=== PATIENT | male | born 1995 | race Caucasian/White ===

== ENCOUNTER 2016-06-27 20:01 | Emergency (ER) | payer BC, OTHER ==
[2016-06-27 21:02] LABS: % IMMATURE GRANULYOCYTES 0.3 % (0.0-1.1); ABSOLUTE IMMATURE GRANULOCYTES 0.04 10^3/uL (0.00-0.10); ADD DIFF? NO; ADD MORPH? NO; ADD SCAN? NO; ATYPICAL LYMPHOCYTE FLAG 0 (0-99); FRAGMENT RBC FLAG 0 (0-99); HEMATOCRIT 46.7 % (40.0-51.0); HEMOGLOBIN 17.4 g/dL (13.7-17.5); LEFT SHIFT FLG 0 (0-99); LIPEMIA HEMOLYSIS FLAG 90 (0-99); MEAN CELL HEMOGLOBIN CONCENTR. 37.3 g/dL (32.4-36.7); MEAN CELL VOLUME 91.2 fL (81.5-99.8); MEAN PLATELET VOLUME 9.7 fL (8.7-11.7); PLATELET CLUMPS FLAG 20 (0-99); PLATELET COUNT 200 10^3/uL (150-400); RED BLOOD CELL COUNT 5.12 10^6/uL (4.40-6.38); RED CELL DISTRIBUTION WIDTH 12.2 % (11.5-15.2)
--- NOTE | 2016-06-27 21:11 | EDPHY ---
H & P Stated Complaint: Fever, N/V Source: Patient Exam Limitations: No limitations - Personal History Current Tetanus/Diphtheria Vaccine: Yes Current Tetanus Diphtheria and Acellular Pertussis (TDAP): Yes - Medical/Surgical History Hx Asthma: No Hx Chronic Respiratory Disease: No Hx Diabetes: No Hx Cardiac Disease: No Hx Renal Disease: No Hx Cirrhosis: No Hx Alcoholism: No Hx HIV/AIDS: No Hx Splenectomy or Spleen Trauma: No Other PMH: GERD - Social History Smoking Status: Never smoked HPI/ROS: CHIEF COMPLAINT: fever, nausea HISTORY OF PRESENT ILLNESS: Nausea, vomiting, fever this started soon after eating this morning. Unable to keep anything down including liquids. Fevers been very well. He has no headache with this. No neck pain or stiffness. He does have body aches. He has no cough, congestion, chest pain or shortness of breath. No abdominal pain but mild discomfort. No flank pain. No urinary complaints. No constipation or diarrhea. No bloody stools or emesis. No other associated complaints or modifying factors. did have left ankle surgery 5 weeks ago but has no complaints regarding this and has had normal follow-up care. REVIEW OF SYSTEMS: Ten systems reviewed and are negative unless otherwise noted in the HPI EXAMINATION General Appearance: Alert, no distress Head: normocephalic, atraumatic Eyes: Pupils equal and round, no conjunctival pallor or injection . EOMs intact. ENT, Mouth: Mucous membranes moist . Uvula midline. No lesions, erythema or edema. Neck: Normal inspection, supple, non-tender Patient painless range of motion all planes. No meningismus. Respiratory: Lungs are clear to auscultation . Mild rhonchi. No wheezing, crackles or consolidation. No diminishment. No respiratory distress. Cardiovascular: Tachycardic rate of 104 beats per minute. Normal rhythm. No murmur. Pulses intact distally. Gastrointestinal: Abdomen is soft and nontender . No point tenderness. No CVA tenderness. No rigidity. No tympany. Nonacute abdomen. Neurological: A&O, nonfocal, normal gait . Strength is symmetric in all limbs. Skin: Warm and dry, no rash . Mild erythema over the left lateral malleolus near incision. There is no purulence. No induration or fluctuance. Extremities: Nontender, no pedal edema. Range of motion is symmetric in all limbs. There is full dorsiflexion and plantar flexion of bilateral ankles. There is no pain with passive flexion of the left ankle. There is no crepitus, fluctuance or induration of the left ankle. The incisions are clean, dry and intact with surrounding erythema. Psychiatric: Mood and affect normal DIFFERENTIAL DIAGNOSES: Including but not limited to Influenza, viral illness, pneumonia, cholecystitis, colitis, enteritis MDM: 8:55 p.m. fever with vomiting and generalized malaise. No headache. No chest pain or cough. Vital signs are stable with mild tachycardia and borderline fever. Laboratory studies and chest x-ray are pending at this time including a flu study. The erythema over the left lateral malleolus is consistent with cellulitis but I do not suspect septic joint. He has full range of motion about the ankle. He has no crepitus. He has no pain with passive range of motion. There is no subcu emphysema and he has had no complaints regarding the ankle. I do feel there is a mild cellulitis about the ankle but no further complication of the ankle at this time. 9:50 p.m. patient is feeling better upon re-evaluation. His vital signs have improved other than his temperature, and he is now febrile. His heart rate is below 100 , he is normotensive and oxygenating on room air without complication. He does have some redness over the left lateral malleolus that is unchanged. I initially thought this may have been pressure from his boot, but this may actually be a superficial infection. I do not feel this related to his presentation, as he does have a hyperbilirubinemia that is more likely to be the etiology. I have ordered ultrasound for this as well as IV fluid and Toradol for his discomfort and fever. Laboratory studies are otherwise within normal limits with mild leukocytosis. 10:50 p.m. I have re-evaluated the patient. He is feeling significantly better. He has had his ultrasound performed but I do not have the results yet. Fever is no longer present. The IV fluid has significantly improved his symptoms. We discussed the possibility of the isolated hyperbilirubinemia, and pending a normal ultrasound will have him follow up with GI to follow this for definitive diagnosis. Additionally we will plan for treatment of the left ankle cellulitis as I do not appreciate any abnormality on x-ray as well. This in the presence of a normal examination, I do not suspect any evidence of septic joint. He is comfortable with this plan and we will await the results of the ultrasound. 11:50 p.m. ultrasound is read as completely within normal limits. I have re-evaluated the patient. He is resting comfortably and feeling significantly better he is asking to eat or drink. I have marked the area of erythema/ cellulitis over the left lateral malleolus. We discussed discharge home with Bactrim and Keflex to treat the cellulitis with instructions to return to the ER should his symptoms worsen or he have more redness about the ankle. He has also return to the ER if he has a persistent fever, change of range of motion in the ankle or any pain in the ankle. He is comfortable this plan and discharged home. Will follow up with his primary care physician and discuss follow up with primary care or a previous clinical appeals rn regarding the isolated hyperbilirubinemia. SUPERVISION: Patient was evaluated in conjunction with the supervising physician. Please see their note for details. (Checo Middleton) Constitutional: Initial Vital Signs Temperature (C) 37.9 C 06/27/16 20:04 Heart Rate 105 H 06/27/16 20:04 Respiratory Rate 18 06/27/16 20:04 Blood Pressure 129/75 H 06/27/16 20:04 O2 Sat (%) 90 L 06/27/16 20:04 O2 Delivery Mode Room Air Allergies/Adverse Reactions: No Known Allergies Allergy (Unverified 05/21/14 22:35) Home Medications: Medication Instructions Recorded Cephalexin [Keflex (*)] 500 mg PO TID #30 cap 06/27/16 Omeprazole 06/27/16 Ondansetron Odt [Zofran Odt 4 mg 4 mg PO Q6 PRN #12 tab 06/27/16 (*)] Sulfamethox/Tmp 800/160 mg 2 tab PO BID 10 Days 06/27/16 [Bactrim Ds] Medical Decision Making ED Course/Re-evaluation: ED PA DICTATION I evaluated and participated in the management of the patient. I also evaluated the patient independently. My co-signature indicates that I have reviewed this chart and I agree with the findings and plan of care as documented. My personal H&P findings include: Healthy 20-year-old who presents with nausea, vomiting, fever for the last 1 day. I saw him after receiving a fluid bolus, his vital signs have normalized and his temperature is defervescing. He does have what appears to be a left ankle cellulitis without any signs of septic joint. This could be the cause of his symptoms. Labs were checked and the patient was noted to have elevated total bilirubin which after a normal abdominal ultrasound was thought to be related to Gilbert's. The patient will be discharged with strict return precautions. We will start him on antibiotics for a cellulitis. (Becky Jennings) - Data Points Laboratory Results: Laboratory Results 06/27/16 Unknown 06/27/16 20:55 06/27/16 06/27/16 06/27/16 Unknown Unknown 22:45 WBC RBC Hgb Hct 46.5 % % (40.0-51.0) MCV MCH MCHC RDW Plt Count MPV Neut % (Auto) Lymph % (Auto) [place] % (Auto) Eos % (Auto) Baso % (Auto) Nucleat RBC Rel Count Absolute Neuts (auto) Absolute Lymphs (auto) Absolute Monos (auto) Absolute Eos (auto) Absolute Basos (auto) Absolute Nucleated RBC Immature Gran % Immature Gran # ESR 5 MM/HR MM/HR (0-15) Sodium Potassium Chloride Carbon Dioxide Anion Gap BUN Creatinine Estimated GFR Glucose Calcium Total Bilirubin Conjugated Bilirubin Unconjugated Bilirubin AST ALT Alkaline Phosphatase C-Reactive Protein 59.0 mg/L H mg/L (<10.0) Total Protein Albumin Lipase Urine Color YELLOW Urine Appearance CLEAR Urine pH 8.0 H (5.0-7.5) Ur Specific [place] 1.023 (1.002-1.030) Urine Protein NEGATIVE (NEGATIVE) Urine Ketones 1+ H (NEGATIVE) Urine Blood NEGATIVE (NEGATIVE) Urine Nitrate NEGATIVE (NEGATIVE) Urine Bilirubin NEGATIVE (NEGATIVE) Urine Urobilinogen NEGATIVE EU EU (0.2-1.0) Ur Leukocyte Esterase TRACE H (NEGATIVE) Urine RBC 5-10 /hpf H /hpf (0-3) Urine WBC 15-25 /hpf H /hpf (0-3) Ur Epithelial Cells TRACE /lpf /lpf (NONE-1+) Urine Mucus TRACE /lpf /lpf (NONE-1+) Ur Culture Indicated? INDICATED H (NI) Urine Glucose NEGATIVE (NEGATIVE) Influenza Typ A,B (DFA) 06/27/16 06/27/16 06/27/16 21:00 20:55 20:55 WBC 11.70 10^3/uL H 10^3/uL (3.80-9.50) RBC 5.12 10^6/uL 10^6/uL (4.40-6.38) Hgb 17.4 g/dL g/dL (13.7-17.5) Hct 46.7 % % (40.0-51.0) MCV 91.2 fL fL (81.5-99.8) MCH 34.0 pg pg (27.9-34.1) MCHC 37.3 g/dL H g/dL (32.4-36.7) RDW 12.2 % % (11.5-15.2) Plt Count 200 10^3/uL 10^3/uL (150-400) MPV 9.7 fL fL (8.7-11.7) Neut % (Auto) 88.4 % H % (39.3-74.2) Lymph % (Auto) 4.1 % L % (15.0-45.0) [place] % (Auto) 6.8 % % (4.5-13.0) Eos % (Auto) 0.1 % L % (0.6-7.6) Baso % (Auto) 0.3 % % (0.3-1.7) Nucleat RBC Rel Count 0.0 % % (0.0-0.2) Absolute Neuts (auto) 10.33 10^3/uL H 10^3/uL (1.70-6.50) Absolute Lymphs (auto) 0.48 10^3/uL L 10^3/uL (1.00-3.00) Absolute Monos (auto) 0.80 10^3/uL 10^3/uL (0.30-0.80) Absolute Eos (auto) 0.01 10^3/uL L 10^3/uL (0.03-0.40) Absolute Basos (auto) 0.04 10^3/uL 10^3/uL (0.02-0.10) Absolute Nucleated RBC 0.00 10^3/uL 10^3/uL (0-0.01) Immature Gran % 0.3 % % (0.0-1.1) Immature Gran # 0.04 10^3/uL 10^3/uL (0.00-0.10) ESR Sodium 139 mEq/L mEq/L (134-144) Potassium 4.1 mEq/L mEq/L (3.5-5.2) Chloride 104 mEq/L mEq/L (97-110) Carbon Dioxide 21 mEq/l L mEq/l (22-31) Anion Gap 14 mEq/L mEq/L (8-16) BUN 16 mg/dL mg/dL (7-23) Creatinine 1.1 mg/dL mg/dL (0.7-1.3) Estimated GFR > 60 Glucose 108 mg/dL H mg/dL (70-100) Calcium 9.9 mg/dL mg/dL (8.5-10.4) Total Bilirubin 4.2 mg/dL H mg/dL (0.1-1.4) Conjugated Bilirubin 0.6 mg/dL H mg/dL (0.0-0.5) Unconjugated Bilirubin 3.6 mg/dL H mg/dL (0.0-1.1) AST 43 IU/L IU/L (17-59) ALT 52 IU/L IU/L (21-72) Alkaline Phosphatase 70 IU/L IU/L (38-126) C-Reactive Protein Total Protein 7.7 g/dL g/dL (6.3-8.2) Albumin 4.7 g/dL g/dL (3.5-5.0) Lipase 148.0 IU/L IU/L (23-300) Urine Color Urine Appearance Urine pH Ur Specific [place] Urine Protein Urine Ketones Urine Blood Urine Nitrate Urine Bilirubin Urine Urobilinogen Ur Leukocyte Esterase Urine RBC Urine WBC Ur Epithelial Cells Urine Mucus Ur Culture Indicated? Urine Glucose Influenza Typ A,B (DFA) NEGATIVE FOR FLU (NEGATIVE) Medications Given: Discontinued Medications Cephalexin (Keflex 500 Mg Prepack#4) 1 btl TAKEHOME EDNOW ONE PRN Reason: Protocol Stop: 06/27/16 23:08 Last Admin: 06/28/16 00:05 Dose: 1 btl Cephalexin HCl (Keflex) 500 mg PO EDNOW ONE PRN Reason: Protocol Stop: 06/27/16 23:08 Last Admin: 06/27/16 23:49 Dose: 500 mg Sodium Chloride (Ns) 1,000 mls @ 0 mls/hr IV ONCE ONE PRN Reason: Wide Open Stop: 06/27/16 21:49 Last Admin: 06/27/16 22:00 Dose: 1,000 mls Sodium Chloride (Ns) 1,000 mls @ 0 mls/hr IV ONCE ONE PRN Reason: Wide Open Stop: 06/27/16 21:54 Last Admin: 06/27/16 20:30 Dose: 1,000 mls Ketorolac Tromethamine (Toradol) 30 mg IVP EDNOW ONE Stop: 06/27/16 21:53 Last Admin: 06/27/16 22:25 Dose: 30 mg Trimethoprim/Sulfamethoxazole (Bactrim Ds Prepack#2) 1 btl TAKEHOME EDNOW ONE Stop: 06/27/16 23:08 Last Admin: 06/28/16 00:07 Dose: 1 btl Trimethoprim/Sulfamethoxazole (Bactrim Ds) 2 ea PO EDNOW ONE PRN Reason: Protocol Stop: 06/27/16 23:08 Last Admin: 06/27/16 23:49 Dose: 2 ea Departure - Departure Disposition: Home, Routine, Self-Care Clinical Impression: Hyperbilirubinemia, Cellulitis of leg without foot Fever Qualifiers: Fever type: other Qualified Code(s): R50.81 - Fever presenting with conditions classified elsewhere Nausea & vomiting Qualifiers: Vomiting type: unspecified Vomiting Intractability: non-intractable Qualified Code(s): R11.2 - Nausea with vomiting, unspecified Condition: Good Instructions: Cephalexin (By mouth), Sulfamethoxazole/Trimethoprim (By mouth) Additional Instructions: Bactrim and Keflex antibiotics as discussed. Follow up with primary care physician for ongoing care as well as the surgeon for the redness around the ankle. Also follow-up with previous clinical appeals rn regarding the elevated bilirubin. Return to the ER for worsening symptoms, persistent fever, pain in the ankle, change in range of motion the ankle, or increasing redness of the erythema of the ankle. Referrals: NONE *PRIMARY CARE P,. [Primary Care Provider] - As per Instructions Moraima Robins MD [Medical Doctor] - As per Instructions Brian Hernandez MD [Medical Doctor] - As per Instructions Prescriptions: Cephalexin [Keflex (*)] 500 mg PO TID #30 cap Ondansetron Odt [Zofran Odt 4 mg (*)] 4 mg PO Q6 PRN #12 tab PRN Reason: Nausea/Vomiting, Use 1st Sulfamethox/Tmp 800/160 mg [Bactrim Ds] 2 tab PO BID 10 Days
[2016-06-27 21:31] LABS: ALANINE AMINOTRANSFERASE 52 IU/L (21-72); ALBUMIN 4.7 g/dL (3.5-5.0); ALKALINE PHOSPHATASE 70 IU/L (38-126); ANION GAP 14 mEq/L (8-16); ASPARTATE AMINOTRANSFERASE 43 IU/L (17-59); BILIRUBIN,TOTAL 4.2 mg/dL (0.1-1.4); BILIRUBIN-CONJUGATED 0.6 mg/dL (0.0-0.5); BILIRUBIN-UNCONJUGATED 3.6 mg/dL (0.0-1.1); CALCIUM 9.9 mg/dL (8.5-10.4); CARBON DIOXIDE 21 mEq/l (22-31); CHLORIDE 104 mEq/L (97-110); CREATININE 1.1 mg/dL (0.7-1.3); GLOMERULAR FILTRATION RATE > 60; GLUCOSE 108 mg/dL (70-100); POTASSIUM 4.1 mEq/L (3.5-5.2); SODIUM 139 mEq/L (134-144); TOTAL PROTEIN 7.7 g/dL (6.3-8.2)
[2016-06-27] MEDS ORDERED: ONDANSETRON 4 MG/2 ML VIAL ONE (21:41)
[2016-06-27] MEDS ORDERED: NS 1,000 ML IV ONE ×2 (21:48→21:53)
[2016-06-27 21:51] LABS: HEMATOCRIT 46.5 % (40.0-51.0)
[2016-06-27] MEDS ORDERED: KETOROLAC 30 MG/1 ML SDV IVP ONE (21:52)
[2016-06-27 22:51] VITALS: RESP 20
[2016-06-27 23:06] LABS: COLOR YELLOW; LEUKOCYTE ESTERASE,URINE TRACE (NEGATIVE); NITRITE,URINE NEGATIVE (NEGATIVE)
[2016-06-27] MEDS ORDERED: SULFAMETHOX/TMP 800/160 MG 1 TAB PO ONE (23:07)
[2016-06-27] MEDS ORDERED: SULFAMET/TMP DS PREPACK#2 BTL TAKEHOME ONE (23:07)
[2016-06-27] MEDS ORDERED: CEPHALEXIN 500 MG CAP PO ONE (23:07)
[2016-06-27] MEDS ORDERED: CEPHALEXIN 500MG PREPACK#4 BTL TAKEHOME ONE (23:07)
[2016-06-27 23:19] LABS: MUCUS TRACE /lpf (NONE-1+); WBC,URINE 15-25 /hpf (0-3)
[2016-06-28 00:09] VITALS: BP 134/80; PULSE 97; TEMP 100.9; O2SAT 97
== END 2016-06-28 00:09 | disposition home or self-care (01) ==
DX: R17 Unspecified jaundice (principal); R50.81 Fever presenting with conditions classified elsewhere; R11.2 Nausea with vomiting, unspecified; L03.116 Cellulitis of left lower limb
CPT/HCPCS: 96374; J1885; J2405